=== PATIENT | female | born 1930 | race Caucasian/White ===

== ENCOUNTER 2017-04-12 16:34 | Inpatient (IN) ==
[2017-04-12] MEDS ORDERED: ONDANSETRON 4 MG/2 ML VIAL IV ONE (16:51)
[2017-04-12] MEDS ORDERED: LACTATED RINGERS 1,000 ML IV ONE (16:51)
--- NOTE | 2017-04-12 17:23 | Emergency Department Note ---
Weakness HPI - General Chief complaint: Weakness Stated complaint: malaise, diarrhea, weakness, decreased LOC Time Seen by Provider: 04/12/17 16:50 Source: patient, family Mode of arrival: EMS Limitations: altered mental status - History of Present Illness HPI Narrative: Patient has had flulike symptoms for last 2 and half days with nausea vomiting diarrhea weakness headache. Significant cough minimal abdominal pain. Diarrhea is been watery. MD Complaint: generalized weakness - Related Data Home Medications Medication Instructions Recorded Confirmed Apixaban [Eliquis] 2.5 mg PO BID 04/12/17 04/12/17 Bisoprolol Fumarate 5 mg PO HS 04/12/17 04/12/17 HYDROcodone/ACETAMINOPHEN 1 each PO BIDP PRN 04/12/17 04/12/17 [Hydrocodon-Acetaminophn 10-325] Losartan/Hydrochlorothiazide 1 each PO BID 04/12/17 04/12/17 [Losartan-Hctz 100-25 mg Tab] Omeprazole [PriLOSEC] 20 mg PO DAILY 04/12/17 04/12/17 Terazosin [Hytrin] 1 mg PO DAILY 04/12/17 04/12/17 Terazosin [Hytrin] 2 mg PO HS 04/12/17 04/12/17 Allergies Allergy/AdvReac Type Severity Reaction Status Date / Time POLLENS Allergy Intermediate Asthma Uncoded 08/24/14 21:33 Review of Systems All systems ED: reviewed and negative except as stated. Past Medical History - Past Medical History Medical history: Reports: atrial fibrillation, hypertension - Social History smoking status: Never smoker Physical Exam Limitations: altered mental status General appearance: in no apparent distress Head: atraumatic Eye: Present: normal appearance ENT: mucous membranes dry Neck: Present: normal inspection Chest: Present: normal inspection Respiratory: Present: normal lung sounds bilaterally Cardiovascular: Present: irregular rhythm, normal heart sounds Abdominal: Present: soft. Absent: distention, tenderness Psychiatric: Present: flat affect Skin: Present: warm, dry, intact Course Vital Signs Temperature 97.5 F 04/12/17 16:36 Pulse Rate 106 H 04/12/17 16:36 Respiratory Rate 22 04/12/17 16:36 Blood Pressure 215/112 04/12/17 16:36 Pulse Oximetry (%) 97 04/12/17 16:36 Temperature 97.5 F 04/12/17 16:36 Pulse Rate 123 H 04/12/17 20:03 Respiratory Rate 16 04/12/17 20:33 Blood Pressure 181/107 04/12/17 20:33 Pulse Oximetry (%) 97 04/12/17 20:03 Weakness - MDM Narrative Medical decision making narrative: This patient is C. difficile positive dehydrated hypokalemic and will be admitted to the hospital. - Lab Data Lab results reviewed: Yes I reviewed the patient's lab results. Result diagrams: 04/12/17 16:59 04/12/17 16:59 Lab Results 04/12/17 04/12/17 04/12/17 Range/Units 16:59 16:59 17:30 WBC 9.3 (4.5-11.0) K/mcL RBC 4.35 (4.00-5.20) M/mcL Hgb 14.0 (12.0-15.0) g/dL Hct 40.9 (36.0-48.0) % MCV 94.1 (80.0-100.0) fL MCH 32.3 (26.0-34.0) pg MCHC 34.3 (31.0-36.0) g/dL RDW 13.4 (11.5-14.5) % Plt Count 264 (140-440) K/mcL MPV 7.8 (7.4-10.4) fL Gran % 78.5 H (38.0-78.0) % Lymph % (Auto) 11.3 L (15.5-49.0) % [place] % (Auto) 8.1 (1.0-12.0) % Eos % (Auto) 1.9 (0.0-7.0) % Baso % (Auto) 0.2 (0.0-2.0) % Gran # 7.3 (1.8-8.0) K/mcL Lymph # (Auto) 1.0 L (1.5-4.8) K/mcL [place] # (Auto) 0.8 (0.1-0.9) K/mcL Eos # (Auto) 0.2 (0.0-0.7) K/mcL Baso # (Auto) 0 (0.0-0.3) K/mcL Sodium 129 L (133-145) mmol/L Potassium 2.9 L* (3.3-5.1) mmol/L Chloride 89 L (96-108) mmol/L Carbon Dioxide 22 (22-30) mmol/L Anion Gap 18.0 H (8-16) BUN 13 (8-23) mg/dl Creatinine 0.8 (0.6-1.1) mg/dl GFR Calculation 66 Glucose 121 H (70-105) mg/dL Calcium 8.7 (8.6-10.4) mg/dl Total Bilirubin 0.7 (0.0-1.0) mg/dL AST 27 (0-37) U/l ALT 13 (0-40) U/l Alkaline Phosphatase 142 H (39-117) U/L Total Protein 7.4 (5.9-8.4) gm/dL Albumin 4.3 (3.2-5.2) gm/dL Globulin 3.1 (2.2-3.7) gm/dL Albumin/Globulin Ratio 1.4 (1.0-2.3) Urine Color Yellow Urine Appearance Clear Urine pH 5.0 (5.0-9.0) Ur Specific [place] 1.018 (1.000-1.035) Urine Protein 30 A (NEG) mg/dL Urine Glucose (UA) Negative (NEG) mg/dL Urine Ketones Neg (NEG) mg/dL Urine Occult Blood 0.03 A (<0.03) mg/dL Urine Nitrate Neg (NEG) Urine Bilirubin Neg (NEG) mg/dL Urine Urobilinogen Neg (NEG) mg/dL Ur Leukocyte Esterase Neg (NEG) /uL Urine RBC 6 H (0-1) /hpf Urine WBC 3 (0-4) /hpf Ur Squamous Epith Cells < 1 (0-4) /hpf Urine Bacteria 0 (0) /hpf Hyaline Casts 2 (0-2) /lpf Urine Mucus Few (0) /hpf Ur Culture Indicated? No Disposition Pt seen by [facility]/PA only: No Clinical Impression: C. difficile enteritis, Hypokalemia, Dehydration Disposition: Xfer As Inpt ([facility]) Condition: Good Referrals: Stan Childs DO [Primary Care Provider] - Time of Disposition: 20:56
[2017-04-12 17:49] LABS: Basophils # (Auto) 0 K/mcL (0.0-0.3); Basophils % (Auto) 0.2 % (0.0-2.0); Eosinophils # (Auto) 0.2 K/mcL (0.0-0.7); Eosinophils % (Auto) 1.9 % (0.0-7.0); Granulocytes % (Auto) 78.5 % (38.0-78.0); Lymphocytes % (Auto) 11.3 % (15.5-49.0); Mean Cell Volume 94.1 fL (80.0-100.0); Mean Corpuscular HGB Conc 34.3 g/dL (31.0-36.0); Mean Corpuscular Hemoglobin 32.3 pg (26.0-34.0); Monocytes # (Auto) 0.8 K/mcL (0.1-0.9); Monocytes % (Auto) 8.1 % (1.0-12.0); Platelet Count 264 K/mcL (140-440); RBC 4.35 M/mcL (4.00-5.20); Red Cell Distribution Width 13.4 % (11.5-14.5)
[2017-04-12 17:57] LABS: Appearance,Urine CLEAR; Bacteria,Urine 0 /hpf (0); Bilirubin,Urine NEG (NEG); Color,Urine YELLOW; Glucose,Urine (UA) NEGATIVE (NEG); Leukocyte Esterase,Urine NEG /uL (NEG); Mucus,Urine FEW /hpf (0); Nitrate,Urine NEG (NEG); Protein,Urine 30 mg/dL (NEG); Specific Gravity,Urine 1.018 (1.000-1.035); Urine Blood 0.03 mg/dL (<0.03); Urine Hyaline Cast 2 /lpf (0-2); Urine RBC 6 /hpf (0-1); Urine Squamous Epithelial Cell < 1 /hpf (0-4); Urine WBC 3 /hpf (0-4); Urobilinogen,Urine NEG (NEG)
[2017-04-12 18:25] LABS: ALT/SGPT 13 U/l (0-40); Albumin 4.3 gm/dL (3.2-5.2); Albumin/Globulin Ratio 1.4 (1.0-2.3); Alkaline Phosphatase 142 U/L (39-117); Blood Urea Nitrogen 13 mg/dl (8-23)
[2017-04-12] MEDS ORDERED: POTASSIUM CHLORIDE 40 MEQ in DEXTROSE 5% IN WATER 500 ML IV ONE ×2 (19:24→21:42)
[2017-04-12] MEDS ORDERED: POTASSIUM CHLORIDE 20 MEQ/10 ML VIAL IV ONE ×2 (19:38→23:23)
[2017-04-12] MEDS ORDERED: metroNIDAZOLE 500 MG TABLET PO ONE (20:54)
[2017-04-12] MEDS ORDERED: TERAZOSIN 1 MG CAPSULE PO SCH (21:22)
[2017-04-12] MEDS ORDERED: METOPROLOL TARTRATE 5 MG/5 ML VIAL IV PRN ×3 (21:22→21:42)
[2017-04-12] MEDS ORDERED: BISOPROLOL FUMARATE 5 MG PO SCH (21:30)
--- NOTE | 2017-04-12 21:41 | Internal Med History&Physical ---
Medical - H&P: [facility] Patient information: Note initiated : 04/12/17 at 9:35 pm Service Date, if different from initiated Date: [] Patient: Niharika Crowley 87 y/o F admitted on for malaise, diarrhea, weakness , decreased LOC. Chief Complaint: [] History of present illness: Ms. Crowley is a 87 year old Female with h/o Afib on eliquis, HTN, presents to the ER with complaints of not feeling well x 2 days, viral syndrome as pe daugther, nausea, poor appetitie, and diarrhea, diarrhea is 6-7 times a day, for last 2 days , she has not eaten much during this tie, and had some nausea, symptoms have progressed over time. The patient today was noted to be very confused and was thinking she is [place] (used to live [place] ago), and was tryign to find her . The patient was therefore brought to the hospital The patient has no recent antibiotic exposure, no hospitalization, no sick contacts, no fever reported patient is very hard of hearing and quite confused, therefore most history is from her daughter. Patient in the ER was tachycardic, and hypertensive, has low K at 2.9, normal WBC, she had low sodium and very weak, she tested positive for cdiff. The patient also takes narcotic pain medications for chr back, joint pains, and has run out of her medications over the last 3 days. She will be admitted to the hospital for further management. ROS unobtainable: due to mental status Medical - H&P: PMH Medical history: afib htn osteroarthritis. chr pain Surgical history: multiple joint surgerys, back, knee, Family history: reviewed and not pertinent Pertinent family history: mother with heart issues. Social history: non smoker, no etoh, no recreational substance. Medical - H&P: Meds Home Medications Medication Instructions Recorded Confirmed Type Apixaban [Eliquis] 2.5 mg PO BID 04/12/17 04/12/17 History Bisoprolol Fumarate 5 mg PO HS 04/12/17 04/12/17 History HYDROcodone/ACETAMINOPHEN 1 each PO BIDP PRN 04/12/17 04/12/17 History [Hydrocodon-Acetaminophn 10-325] Losartan/Hydrochlorothiazide 1 each PO BID 04/12/17 04/12/17 History [Losartan-Hctz 100-25 mg Tab] Omeprazole [PriLOSEC] 20 mg PO DAILY 04/12/17 04/12/17 History Terazosin [Hytrin] 1 mg PO DAILY 04/12/17 04/12/17 History Terazosin [Hytrin] 2 mg PO HS 04/12/17 04/12/17 History Allergies Allergy/AdvReac Type Severity Reaction Status Date / Time POLLENS Allergy Intermediate Asthma Uncoded 08/24/14 21:33 Medical - H&P: Exam - Constitutional Vitals: Temp Pulse Resp BP Pulse Ox 97.5 F 123 H 17 159/114 97 04/12/17 16:36 04/12/17 20:03 04/12/17 21:21 04/12/17 21:02 04/12/17 20:03 Exam: GENERAL: The patient is a well-developed, well-nourished in no apparent distress. Is alert and oriented x1. VITAL SIGNS: Reviewed and as noted elsewhere. HEENT: Head is normocephalic and atraumatic. Extraocular muscles are intact. Pupils are equal, round, and reactive to light. Nares appeared normal. Mouth appears any without lesions. Mucous membranes are dry NECK: Normal to inspection, Supple, No lymphadenopathy or thyromegaly. LUNGS: Air entry equal on both sides, no wheezing, crackles or rhonchi noted. No accessory muscles of respiration(ant chest exam only) HEART: tachycardic rate and rhythm normal, S1 and S2 heard, no Gallop, S3 or Rub Noted, ABDOMEN: Soft, nontender, and nondistended. Positive bowel sounds. No hepatosplenomegaly was noted. EXTREMITIES: No cyanosis, clubbing, rash, lesions or edema. NEUROLOGIC: Cranial nerves II through XII are grossly intact. Motor and Sensory System Grossly Intact PSYCHIATRIC: confused behaviour, not agitated. SKIN: No ulceration or wounds noted, No jaundice, No rash noted. Medical - H&P: Reslt - Labs CBC & Chem 7: 04/12/17 16:59 04/12/17 16:59 Labs: Short CBC 04/12/17 Range/Units 16:59 WBC 9.3 (4.5-11.0) K/mcL Hgb 14.0 (12.0-15.0) g/dL Hct 40.9 (36.0-48.0) % Plt Count 264 (140-440) K/mcL BMP 04/12/17 16:59 Sodium 129 L Potassium 2.9 L* Chloride 89 L Carbon Dioxide 22 BUN 13 Creatinine 0.8 Glucose 121 H Calcium 8.7 Liver Function 04/12/17 Range/Units 16:59 Total Bilirubin 0.7 (0.0-1.0) mg/dL AST 27 (0-37) U/l ALT 13 (0-40) U/l Alkaline Phosphatase 142 H (39-117) U/L Albumin 4.3 (3.2-5.2) gm/dL Urine 04/12/17 Range/Units 17:30 Urine Color Yellow Urine Appearance Clear Urine pH 5.0 (5.0-9.0) Ur Specific [place] 1.018 (1.000-1.035) Urine Protein 30 A (NEG) mg/dL Urine Glucose (UA) Negative (NEG) mg/dL Medical - H&P: A/P - Narrative A/P Narrative: A/P Cdiff infection: community acquired Cdiff? no recent hospitalization, no recent antibiotic use as per marlena, start on pO vancomycin. Hypokalemia: acute, due to poor intake and diarrhea, replace IV total 80meq planned, Hyponatremia: due to dehydration, IV Fluids for now Afib with RVR: due to dehydration not sure if has taken her medications, resume home meds, IV fluids, prn metoprolol if pt does not respond. on eliquis continue same. HTN: BP is elevated, resume home meds, for now and monitor Altered mental status, : due to delirium, exam is non focal, hydrate patient for now, treat underlying infection and reassess her condition in AM, if despite above measures pt still shows no improvement, will get [employer] [employer] imaging. DVT on Eliquis Regular diet OT/PT/ST eval DNR code status. Plan of care reviewed with marlena, who was at bedside.
[2017-04-12] MEDS ORDERED: ONDANSETRON 4 MG/2 ML VIAL IV PRN (21:42)
[2017-04-12] MEDS ORDERED: oxyCODONE/APAP 5/325MG TABLET PO PRN (21:42)
[2017-04-12] MEDS ORDERED: ALBUTEROL SULFATE 2.5 MG/3 ML NEBULIZER NEB PRN (21:42)
[2017-04-12] MEDS ORDERED: NALOXONE HCL 0.4 MG/ML VIAL IV PRN (21:42)
[2017-04-12] MEDS ORDERED: HYDROmorphone 2 MG/ML SYRINGE IV ONE (21:42)
[2017-04-12] MEDS ORDERED: MAGNESIUM SULFATE 2 GM/50 ML BAG IV ONE (21:44)
[2017-04-12] MEDS: BISOPROLOL 5 MG TABLET PO SCH (23:23)
[2017-04-12] MEDS: APIXABAN 5 MG TABLET PO SCH (23:24)
[2017-04-12] MEDS: LACTATED RINGERS 1,000 ML IV SCH (23:25)
[2017-04-12] MEDS: VANCOMYCIN ORAL SOL 1,000 MG/10 ML BOTTLE PO SCH (23:27)
[2017-04-13 05:57] LABS: Basophils # (Auto) 0 K/mcL (0.0-0.3); Basophils % (Auto) 0.3 % (0.0-2.0); Eosinophils # (Auto) 0.1 K/mcL (0.0-0.7); Eosinophils % (Auto) 1.2 % (0.0-7.0); Granulocytes % (Auto) 88.9 % (38.0-78.0); Lymphocytes # (Auto) 0.5 K/mcL (1.5-4.8); Lymphocytes % (Auto) 4.1 % (15.5-49.0); Mean Corpuscular HGB Conc 34.1 g/dL (31.0-36.0); Mean Corpuscular Hemoglobin 32.1 pg (26.0-34.0); Monocytes # (Auto) 0.7 K/mcL (0.1-0.9); Monocytes % (Auto) 5.5 % (1.0-12.0); Platelet Count 239 K/mcL (140-440); RBC 3.95 M/mcL (4.00-5.20); Red Cell Distribution Width 13.3 % (11.5-14.5)
[2017-04-13 06:32] LABS: ALT/SGPT 12 U/l (0-40); Albumin 3.6 gm/dL (3.2-5.2); Albumin/Globulin Ratio 1.2 (1.0-2.3); Alkaline Phosphatase 124 U/L (39-117); Bilirubin,Direct < 0.2 mg/dL (0.0-0.3); Blood Urea Nitrogen 9 mg/dl (8-23); Gamma Glutamyl Transpeptidase 20 U/L (5-36); Magnesium 1.6 mg/dL (1.6-2.5); Uric Acid 3.6 mg/dL (2.5-8.0)
[2017-04-13] MEDS: LACTATED RINGERS 1,000 ML IV SCH (07:46)
[2017-04-13] MEDS: OMEPRAZOLE 20 MG CAPSULE PO SCH (07:52)
[2017-04-13] MEDS: ACETAMINOPHEN 325 MG TABLET PO PRN (07:52)
[2017-04-13] MEDS: APIXABAN 5 MG TABLET PO SCH ×2 (07:56→22:00)
[2017-04-13] MEDS: TERAZOSIN 1 MG CAPSULE PO SCH (07:56)
[2017-04-13] MEDS ORDERED: TERAZOSIN 1 MG CAPSULE PO SCH ×2 (09:00→21:00)
[2017-04-13] MEDS ORDERED: LOSARTAN 50 MG TABLET PO SCH (09:00)
[2017-04-13] MEDS ORDERED: NON FORMULARY MEDICATION 1 DOSE MISCELL (Apixaban [Eliquis] 2.5 MG) PO SCH (09:00)
[2017-04-13] MEDS ORDERED: OMEPRAZOLE 20 MG CAPSULE PO SCH (09:00)
[2017-04-13] MEDS ORDERED: HYDROCHLOROTHIAZIDE 25 MG TABLET PO SCH (09:00)
[2017-04-13] MEDS ORDERED: LOSARTAN/HCTZ 100/25 TABLET PO SCH ×2 (09:00)
[2017-04-13 09:49] LABS: Blood Urea Nitrogen 9 mg/dl (8-23)
[2017-04-13] MEDS: 0.9 % SODIUM CHLORIDE 1,000 ML IV SCH ×3 (09:49→21:59)
[2017-04-13] MEDS: VANCOMYCIN ORAL SOL 1,000 MG/10 ML BOTTLE PO SCH ×4 (10:01→22:06)
--- NOTE | 2017-04-13 11:03 | Cat Scan Report ---
CLINICAL INFORMATION: Decreased level consciousness with weakness and confusion COMPARISON: None. TECHNIQUE: 2.5 mm helical slices were obtained in the skull base to vertex. Following reconstruction, axial reformatted images were reviewed at bone and parenchymal windows. The exam was performed using radiation dose optimization techniques including, but not limited to, automated exposure control, adjustment of the mA and/or kV according to patient size and use of iterative reconstruction technique. FINDINGS: The ventricles, sulci, fissures, and cisterns are symmetrically enlarged compatible with mild age-related atrophy - no extra-axial fluid collections or masses are appreciated. Patchy chronic ischemic changes in the deep cerebral white matter are expected for age. There is no intracerebral hemorrhage, mass effect, edema or other acute finding Moderate sized air-fluid level in the right maxillary sinus with associated mucosal thickening is compatible with acute sinusitis. There is also subtotal opacification of both sphenoid and posterior left ethmoid air cells. IMPRESSION: 1. Mild atrophy and patchy chronic ischemic changes in the the cerebral white matter - expected for age. No acute intracerebral abnormality 2. Severe bilateral sphenoid sinusitis, left posterior ethmoid sinusitis and moderate acute right maxillary sinusitis [] Interpreted and Authenticated by: Hernando Person 04/13/17
[2017-04-13] MEDS: AMOXICILLIN/POTASSIUM CLAV 875 MG TABLET PO SCH ×2 (13:07→17:05)
--- NOTE | 2017-04-13 17:33 | Internal Med Progress Note ---
Medical - PN: Subj Patient information: Note initiated : 04/13/17 at 5:31 pm Service Date, if different from initiated Date: [] Patient: Niharika Crowley 87 y/o F admitted on 04/12/17 for Malaise, Diarrhea, Weakness, Decreased LOC/CDiff. Chief Complaint: [] Interval history: Ms. Crowley is a 87 year old Female with h/o Afib on eliquis, HTN, presents to the ER with complaints of not feeling well x 2 days, viral syndrome as pe daugther, nausea, poor appetitie, and diarrhea, diarrhea is 6-7 times a day, for last 2 days , she has not eaten much during this tie, and had some nausea, symptoms have progressed over time. The patient today was noted to be very confused and was thinking she is [place] (used to live [place] ago), and was tryign to find her . The patient was therefore brought to the hospital The patient has no recent antibiotic exposure, no hospitalization, no sick contacts, no fever reported patient is very hard of hearing and quite confused, therefore most history is from her daughter. Patient in the ER was tachycardic, and hypertensive, has low K at 2.9, normal WBC, she had low sodium and very weak, she tested positive for cdiff. The patient also takes narcotic pain medications for chr back, joint pains, and has run out of her medications over the last 3 days. She will be admitted to the hospital for further management. Apr 13 patient seen examined, no acute overnight issues, she remains confused, but is more coherent today CT head is neg for CVA wbc elevated today, reamins on po vanco patient sodium level dropped to 121, then 123, tsh is wnl, fluids changed to NS , monitor basic panel patient still delirious. Pertinent ROS: unable to get reliable ros as patient is confused but she denies all complaints. - Constitutional Vitals: Vital Signs Temp Pulse Resp BP Pulse Ox 98.5 F 123 H 12 148/122 97 04/13/17 16:00 04/12/17 20:03 04/13/17 16:00 04/13/17 16:00 04/13/17 16:00 Period Temp Pulse Resp BP Sys/Celeste Pulse Ox Last 24 Hr 97.1 F-98.7 F 84-137 12-23 128-192/93-158 94-98 Intake and Output 04/13/17 04/13/17 04/13/17 05:59 13:59 21:59 Intake Total 570 / 570 1455 / 1455 240 / 240 Output Total 875 / 875 Balance -305 / -305 1455 / 1455 240 / 240 Intake & Output: Intake & Output 04/13/17 04/13/17 04/13/17 05:59 13:59 21:59 Intake Total 570 / 570 1455 / 1455 240 / 240 Output Total 875 / 875 Balance -305 / -305 1455 / 1455 240 / 240 Intake: IV 570 / 570 1305 / 1305 Lactated Ringers 1,000 ml @ 150 1305 / 1305 mls/hr IV .[id number] HERMELINDO Rx#: [id number] Oral 150 / 150 240 / 240 Output: Void Amount 875 / 875 Other: Meal Breakfast Percent of Meal Consumed 25% # Voids 0 Exam: Constitutional; Afebrile, cooperative, alert, not in distress. Eyes- No icterus, , No periorbital swelling Ears- Ext ear normal, hearing hard to conversation. Neck- Midline trachea, supple Respiratory system: Air Entry equal on both sides, No crackles or wheezing, no rhonchi. CVS- Rate tachycardic rhythm irregular, S1,S2 heard, no gallop, no rub. Abdomen- Soft nontender abdomen, no organomegaly, no tenderness, no guarding or rigidity, PHARMACEUTICAL PHYSICIAN- AOOx1, moving all extremities, no gross focal deficit noted. Medical - PN: Obj Da - Labs CBC & Chem 7: 04/13/17 03:45 04/13/17 09:00 Labs: Abnormal Lab Results 04/13/17 04/13/17 04/13/17 09:00 03:45 03:45 WBC 12.6 H RBC 3.95 L Gran % 88.9 H Lymph % (Auto) 4.1 L Gran # 11.2 H Lymph # (Auto) 0.5 L Sodium 123 L 122 L Potassium Chloride 85 L 84 L Anion Gap Glucose 169 H 165 H Calcium 8.4 L Phosphorus 2.5 L Alkaline Phosphatase 124 H Lactate Dehydrogenase 270 H Urine Protein Urine Occult Blood Urine RBC 04/12/17 04/12/17 04/12/17 17:30 16:59 16:59 WBC RBC Gran % 78.5 H Lymph % (Auto) 11.3 L Gran # Lymph # (Auto) 1.0 L Sodium 129 L Potassium 2.9 L* Chloride 89 L Anion Gap 18.0 H Glucose 121 H Calcium Phosphorus Alkaline Phosphatase 142 H Lactate Dehydrogenase Urine Protein 30 A Urine Occult Blood 0.03 A Urine RBC 6 H Meds: Medications Acetaminophen (Tylenol) 650 mg PO Q6HP PRN PRN Reason: PAIN/FEVER > 101 Last Admin: 04/13/17 07:52 Dose: 650 mg Albuterol Sulfate (Ventolin) 2.5 mg NEB Q4HRT PRN PRN Reason: Shortness Of Breath Or Wheezing Amoxicillin/Clavulanate [facility] ([facility]) [facility] Last Admin: 04/13/17 17:05 Dose: 875 mg Bisoprolol Fumarate (Zebeta) 5 mg PO [facility] Last Admin: 04/12/17 23:23 Dose: 5 mg Hydrochlorothiazide (Oretic) 25 mg PO BID [facility] Last Admin: 04/13/17 07:52 Dose: 25 mg Sodium Chloride (Sodium Chloride 0.9%) 1,000 mls @ 100 mls/hr IV .Q10H [facility] Stop: 04/14/17 04:29 Last Admin: 04/13/17 17:00 Dose: Not Given Losartan Potassium (Cozaar) 100 mg PO BID [facility] Last Admin: 04/13/17 07:51 Dose: 100 mg Metoprolol Tartrate (Lopressor) 5 mg IV Q4HP PRN PRN Reason: Tachyarrhythmias Last Admin: 04/13/17 00:39 Dose: 5 mg Naloxone HCl (Narcan) 0.1 mg IV Q2MIN PRN PRN Reason: Opiate Reversal Omeprazole (Prilosec) 20 mg PO QAMAC [facility] Last Admin: 04/13/17 07:52 Dose: 20 mg Ondansetron HCl (Zofran) 4 mg IV Q4HP PRN PRN Reason: Nausea And Vomiting Oxycodone/Acetaminophen (Percocet 5-325 Mg) 1 tab PO Q4HP PRN PRN Reason: PAIN LEVEL 3-6 Terazosin HCl (Hytrin) 1 mg PO DAILY [facility] Last Admin: 04/13/17 07:56 Dose: 1 mg Terazosin HCl (Hytrin) 2 mg PO HS HERMELINDO Vancomycin HCl (Vancomycin Oral Juany) 250 mg PO QID [facility] Last Admin: 04/13/17 17:05 Dose: 2.5 ml Medical - PN: A/P - Time Spent With Patient Total time spent is greater than 50% in coordination of care (as documented) at patient's floor/unit and/or counseling patient: - Narrative A/P Narrative: A/P Cdiff infection: community acquired Cdiff? no recent hospitalization, no recent antibiotic use as per marlena, start on pO vancomycin. leucocytosis due to above, Hypokalemia: resolved. Afib with RVR: due to dehydration not sure if has taken her medications, resume home meds, IV fluids, prn metoprolol if pt does not respond. on eliquis continue same. HTN: BP is elevated, resume home meds, cut back losaratn to 100mg qd, d/c hctz in light of hyponatremia, and start on amlodipine 5mg qd. Hyponatremia: etiollogy dyue ot high dose hctz? d/c hctz? worsened after lr, change to NS, recheck, is acute so rapid correction is ok. CT head is neg. TSH neg. Altered mental status, : due to delirium, exam is non focal, hydrate patient for now, CT head is neg. DVT on Eliquis Regular diet OT/PT/ST eval DNR code status. Plan of care reviewed with marlena, who was at bedside this AM. Medical - PN: Qual - VTE Deep Vein Thrombosis/Pulmonary Embolism Present on Admission: No
[2017-04-13] MEDS ORDERED: amLODIPine 5 MG TABLET PO ONE (17:41)
[2017-04-13 19:00] LABS: Blood Urea Nitrogen 11 mg/dl (8-23)
[2017-04-13] MEDS: BISOPROLOL 5 MG TABLET PO SCH (22:00)
[2017-04-14 05:29] LABS: Basophils # (Auto) 0 K/mcL (0.0-0.3); Basophils % (Auto) 0.2 % (0.0-2.0); Eosinophils # (Auto) 0.1 K/mcL (0.0-0.7); Eosinophils % (Auto) 1.6 % (0.0-7.0); Granulocytes % (Auto) 83.4 % (38.0-78.0); Lymphocytes # (Auto) 0.7 K/mcL (1.5-4.8); Lymphocytes % (Auto) 7.5 % (15.5-49.0); Mean Cell Volume 93.7 fL (80.0-100.0); Mean Corpuscular HGB Conc 34.4 g/dL (31.0-36.0); Mean Corpuscular Hemoglobin 32.3 pg (26.0-34.0); Monocytes # (Auto) 0.7 K/mcL (0.1-0.9); Monocytes % (Auto) 7.3 % (1.0-12.0); Platelet Count 195 K/mcL (140-440); RBC 3.62 M/mcL (4.00-5.20); Red Cell Distribution Width 13.3 % (11.5-14.5)
[2017-04-14 05:53] LABS: ALT/SGPT 12 U/l (0-40); Albumin 3.7 gm/dL (3.2-5.2); Albumin/Globulin Ratio 1.5 (1.0-2.3); Alkaline Phosphatase 105 U/L (39-117); Bilirubin,Direct < 0.2 mg/dL (0.0-0.3); Blood Urea Nitrogen 11 mg/dl (8-23); Gamma Glutamyl Transpeptidase 21 U/L (5-36); Magnesium 1.4 mg/dL (1.6-2.5); Uric Acid 4.4 mg/dL (2.5-8.0)
[2017-04-14] MEDS ORDERED: MAGNESIUM SULFATE 2 GM/50 ML BAG IV ONE (07:54)
[2017-04-14] MEDS ORDERED: POTASSIUM CHLORIDE 20 MEQ PACKET PO ONE (08:09)
[2017-04-14] MEDS ORDERED: LOSARTAN 50 MG TABLET PO SCH (09:00)
[2017-04-14] MEDS ORDERED: amLODIPine 5 MG TABLET PO SCH (09:00)
[2017-04-14] MEDS ORDERED: FLU VACC QS2017-18 36MOS UP/PF 60 MCG/0.5 ML SYRINGE IM ONE (10:00)
[2017-04-14] MEDS: ACETAMINOPHEN 325 MG TABLET PO PRN (10:03)
[2017-04-14] MEDS: APIXABAN 5 MG TABLET PO SCH ×2 (10:04→21:33)
[2017-04-14] MEDS: TERAZOSIN 1 MG CAPSULE PO SCH (10:04)
[2017-04-14] MEDS: AMOXICILLIN/POTASSIUM CLAV 875 MG TABLET PO SCH ×2 (10:05→17:32)
[2017-04-14] MEDS: OMEPRAZOLE 20 MG CAPSULE PO SCH (10:05)
[2017-04-14] MEDS: VANCOMYCIN ORAL SOL 1,000 MG/10 ML BOTTLE PO SCH ×4 (10:05→21:35)
[2017-04-14] MEDS: 0.9 % SODIUM CHLORIDE 1,000 ML IV SCH ×4 (10:06→22:05)
--- NOTE | 2017-04-14 15:28 | Internal Med Progress Note ---
Medical - PN: Subj Patient information: Note initiated : 04/14/17 at 3:26 pm Service Date, if different from initiated Date: [] Patient: Niharika Crowley 87 y/o F admitted on 04/12/17 for Malaise, Diarrhea, Weakness, Decreased LOC/CDiff. Chief Complaint: [] Interval history: Ms. Crowley is a 87 year old Female with h/o Afib on eliquis, HTN, presents to the ER with complaints of not feeling well x 2 days, viral syndrome as pe daugther, nausea, poor appetitie, and diarrhea, diarrhea is 6-7 times a day, for last 2 days , she has not eaten much during this tie, and had some nausea, symptoms have progressed over time. The patient today was noted to be very confused and was thinking she is on [place] (used to live there 20 [place] ago), and was tryign to find her . The patient was therefore brought to the hospital The patient has no recent antibiotic exposure, no hospitalization, no sick contacts, no fever reported patient is very hard of hearing and quite confused, therefore most history is from her daughter. Patient in the ER was tachycardic, and hypertensive, has low K at 2.9, normal WBC, she had low sodium and very weak, she tested positive for cdiff. The patient also takes narcotic pain medications for chr back, joint pains, and has run out of her medications over the last 3 days. She will be admitted to the hospital for further management. Apr 13 patient seen examined, no acute overnight issues, she remains confused, but is more coherent today CT head is neg for CVA wbc elevated today, reamins on po vanco patient sodium level dropped to 121, then 123, tsh is wnl, fluids changed to NS , monitor basic panel patient still delirious. Apr 14 patient seen examined, daughter by bedside she notes she had few episdoes of diarrhea this AM mental status much better today, denies any complaints besides diarrhea. Pertinent ROS: Denies headache, dizziness Denies chest pain, palpitations Denies cough or shortness of breath Denies abdominal pain, nausea or vomiting. - Constitutional Vitals: Vital Signs Temp Pulse Resp BP Pulse Ox 98.0 F 99 H 19 141/108 95 04/14/17 13:42 04/14/17 07:29 04/14/17 09:30 04/14/17 12:15 04/14/17 12:15 Period Temp Pulse Resp BP Sys/Celeste Pulse Ox Last 24 Hr 97.5 F-98.9 F 99-114 12-19 119-163/79-122 93-98 Intake and Output 04/14/17 04/14/17 04/14/17 05:59 13:59 21:59 Intake Total 1410 / 1410 50 / 50 Output Total 125 / 125 175 / 175 Balance -125 / -125 1235 / 1235 50 / 50 Weight 161 lb Patient Weight 04/15/17 05:59 Weight 161 lb Intake & Output: Intake & Output 04/14/17 04/14/17 04/14/17 05:59 13:59 21:59 Intake Total 1410 / 1410 50 / 50 Output Total 125 / 125 175 / 175 Balance -125 / -125 1235 / 1235 50 / 50 Weight 161 lb Intake: IV 1050 / 1050 Oral 360 / 360 50 / 50 Output: Void Amount 75 / 75 125 / 125 Urine/Stool Mix 50 / 50 50 / 50 Other: Meal Breakfast Lunch Percent of Meal Consumed 50% 10 Feeding Ability Assist with Tray Set Up # Voids 1 1 # Bowel Movements 1 1 # of times incontinent of 1 Bowels Exam: Constitutional; Afebrile, cooperative, alert, not in distress. Eyes- No icterus, , No periorbital swelling Ears- Ext ear normal, hearing hard to conversation. Neck- Midline trachea, supple Respiratory system: Air Entry equal on both sides, No crackles or wheezing, no rhonchi. CVS- Rate rhythm regular, S1,S2 heard, no gallop, no rub. 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 Medical - PN: Obj Da - Labs CBC & Chem 7: 04/14/17 03:45 04/14/17 03:45 Labs: Abnormal Lab Results 04/14/17 04/14/17 04/13/17 03:45 03:45 17:46 WBC RBC 3.62 L Hgb 11.7 L Hct 34.0 L Gran % 83.4 H Lymph % (Auto) 7.5 L Gran # Lymph # (Auto) 0.7 L Sodium 126 L 123 L Potassium Chloride 89 L 86 L Carbon Dioxide 21 L 21 L Anion Gap Glucose 109 H 126 H Calcium 8.1 L 8.3 L Phosphorus Magnesium 1.4 L Alkaline Phosphatase Lactate Dehydrogenase 275 H Urine Protein Urine Occult Blood Urine RBC 04/13/17 04/13/17 04/13/17 09:00 03:45 03:45 WBC 12.6 H RBC 3.95 L Hgb Hct Gran % 88.9 H Lymph % (Auto) 4.1 L Gran # 11.2 H Lymph # (Auto) 0.5 L Sodium 123 L 122 L Potassium Chloride 85 L 84 L Carbon Dioxide Anion Gap Glucose 169 H 165 H Calcium 8.4 L Phosphorus 2.5 L Magnesium Alkaline Phosphatase 124 H Lactate Dehydrogenase 270 H Urine Protein Urine Occult Blood Urine RBC 04/12/17 04/12/17 04/12/17 17:30 16:59 16:59 WBC RBC Hgb Hct Gran % 78.5 H Lymph % (Auto) 11.3 L Gran # Lymph # (Auto) 1.0 L Sodium 129 L Potassium 2.9 L* Chloride 89 L Carbon Dioxide Anion Gap 18.0 H Glucose 121 H Calcium Phosphorus Magnesium Alkaline Phosphatase 142 H Lactate Dehydrogenase Urine Protein 30 A Urine Occult Blood 0.03 A Urine RBC 6 H Meds: Medications Acetaminophen (Tylenol) 650 mg PO Q6HP PRN PRN Reason: PAIN/FEVER > 101 Last Admin: 04/14/17 10:03 Dose: 650 mg Albuterol Sulfate (Ventolin) 2.5 mg NEB Q4HRT PRN PRN Reason: Shortness Of Breath Or Wheezing Amlodipine Besylate (Norvasc) 5 mg PO DAILY [facility] Last Admin: 04/14/17 10:05 Dose: 5 mg Amoxicillin/Clavulanate Potassium (Augmentin) 875 mg PO BIDCC [facility] Last Admin: 04/14/17 10:05 Dose: 875 mg Bisoprolol Fumarate (Zebeta) 5 mg PO HS [facility] Last Admin: 04/13/17 22:00 Dose: 5 mg Sodium Chloride (Sodium Chloride 0.9%) 1,000 mls @ 100 mls/hr IV .Q10H [facility] Stop: 04/15/17 14:14 Last Admin: 04/14/17 10:09 Dose: 100 mls/hr Losartan Potassium (Cozaar) 100 mg PO DAILY [facility] Last Admin: 04/14/17 10:04 Dose: 100 mg Metoprolol Tartrate (Lopressor) 5 mg IV Q4HP PRN PRN Reason: Tachyarrhythmias Last Admin: 04/13/17 00:39 Dose: 5 mg Naloxone HCl (Narcan) 0.1 mg IV Q2MIN PRN PRN Reason: Opiate Reversal Omeprazole (Prilosec) 20 mg PO QAMAC [facility] Last Admin: 04/14/17 10:05 Dose: 20 mg Ondansetron HCl (Zofran) 4 mg IV Q4HP PRN PRN Reason: Nausea And Vomiting Oxycodone/Acetaminophen (Percocet 5-325 Mg) 1 tab PO Q4HP PRN PRN Reason: PAIN LEVEL 3-6 Terazosin HCl (Hytrin) 1 mg PO DAILY [facility] Last Admin: 04/14/17 10:04 Dose: 1 mg Terazosin HCl (Hytrin) 2 mg PO HS [facility] Last Admin: 04/13/17 22:00 Dose: 2 mg Vancomycin HCl (Vancomycin Oral Juany) 250 mg PO QID [facility] Last Admin: 04/14/17 13:59 Dose: 2.5 ml Medical - PN: A/P - Time Spent With Patient Total time spent is greater than 50% in coordination of care (as documented) at patient's floor/unit and/or counseling patient: - Narrative A/P Narrative: A/P Cdiff infection: community acquired Cdiff? no recent hospitalization, no recent antibiotic use as per marlena, on po vancomycin. leucocytosis due to above, improving. Hypokalemia: resolved. Afib with RVR: IM proving, ation not sure if has taken her medications, resume home meds, IV fluids, prn metoprolol if pt does not respond. on eliquis continue same. HTN: BP is improving, continue home meds, losartan dose cut to 100mg qd, hctz st opped and amlodipine started. Hyponatremia: etiology due ot high dose hctz? d/c hctz? worsened after lr, change to NS, Na today is 126, slowly improving, tsh wnl. Altered mental status, : due to delirium, exam is non focal, hydrate patient for now, CT head is neg. clinically much better today. DVT on Eliquis Regular diet OT/PT/ST eval DNR code status. Medical - PN: Qual - VTE Deep Vein Thrombosis/Pulmonary Embolism Present on Admission: No
[2017-04-14] MEDS ORDERED: ACETAMINOPHEN 325 MG TABLET PO PRN (16:57)
[2017-04-14] MEDS ORDERED: ALBUTEROL SULFATE 2.5 MG/3 ML NEBULIZER NEB PRN (16:57)
[2017-04-14] MEDS ORDERED: NALOXONE HCL 0.4 MG/ML VIAL IV PRN (16:57)
[2017-04-14] MEDS ORDERED: METOPROLOL TARTRATE 5 MG/5 ML VIAL IV PRN (16:57)
[2017-04-14] MEDS ORDERED: ONDANSETRON 4 MG/2 ML VIAL IV PRN (16:57)
--- NOTE | 2017-04-14 17:33 | XRay Report ---
CLINICAL INFORMATION: Cough COMPARISON: 04/13/2012 FINDINGS: Moderate cardiomegaly is unchanged. Mediastinum and pulmonary vessels are unremarkable. Mild bibasilar airspace disease most likely represents atelectasis rather than developing infiltrate. No definite effusion IMPRESSION: Mild patchy bibasilar airspace disease - either atelectasis or developing infiltrate. Interpreted and Authenticated by: Hernando Person 04/14/17
[2017-04-14] MEDS ORDERED: TERAZOSIN 1 MG CAPSULE PO SCH (21:00)
[2017-04-14] MEDS ORDERED: BISOPROLOL 5 MG TABLET PO SCH (21:00)
[2017-04-14] MEDS: oxyCODONE/APAP 5/325MG TABLET PO PRN (21:50)
[2017-04-15] MEDS: oxyCODONE/APAP 5/325MG TABLET PO PRN ×2 (02:30→12:10)
[2017-04-15] MEDS: 0.9 % SODIUM CHLORIDE 1,000 ML IV SCH (03:17)
[2017-04-15 05:43] LABS: Basophils # (Auto) 0 K/mcL (0.0-0.3); Basophils % (Auto) 0.1 % (0.0-2.0); Eosinophils # (Auto) 0.2 K/mcL (0.0-0.7); Eosinophils % (Auto) 1.9 % (0.0-7.0); Granulocytes % (Auto) 83.1 % (38.0-78.0); Lymphocytes # (Auto) 0.7 K/mcL (1.5-4.8); Lymphocytes % (Auto) 7.5 % (15.5-49.0); Mean Corpuscular HGB Conc 34.8 g/dL (31.0-36.0); Mean Corpuscular Hemoglobin 32.7 pg (26.0-34.0); Monocytes # (Auto) 0.6 K/mcL (0.1-0.9); Monocytes % (Auto) 7.4 % (1.0-12.0); Platelet Count 189 K/mcL (140-440); RBC 3.39 M/mcL (4.00-5.20); Red Cell Distribution Width 13.9 % (11.5-14.5)
[2017-04-15 06:14] LABS: ALT/SGPT 12 U/l (0-40); Albumin 3.5 gm/dL (3.2-5.2); Albumin/Globulin Ratio 1.4 (1.0-2.3); Alkaline Phosphatase 100 U/L (39-117); Bilirubin,Direct < 0.2 mg/dL (0.0-0.3); Blood Urea Nitrogen 9 mg/dl (8-23); Gamma Glutamyl Transpeptidase 21 U/L (5-36); Magnesium 1.6 mg/dL (1.6-2.5); Uric Acid 4.1 mg/dL (2.5-8.0)
[2017-04-15] MEDS ORDERED: OMEPRAZOLE 20 MG CAPSULE PO SCH (07:30)
[2017-04-15] MEDS: APIXABAN 5 MG TABLET PO SCH (08:35)
[2017-04-15] MEDS: AMOXICILLIN/POTASSIUM CLAV 875 MG TABLET PO SCH (08:35)
[2017-04-15] MEDS: VANCOMYCIN ORAL SOL 1,000 MG/10 ML BOTTLE PO SCH (08:37)
[2017-04-15] MEDS ORDERED: TERAZOSIN 1 MG CAPSULE PO SCH (09:00)
[2017-04-15] MEDS ORDERED: amLODIPine 5 MG TABLET PO SCH (09:00)
[2017-04-15] MEDS ORDERED: LOSARTAN 50 MG TABLET PO SCH (09:00)
--- NOTE | 2017-04-15 10:15 | Discharge Summary ---
Medical - DS: Prov Patient information: Note initiated : 04/15/17 at 10:07 am Service Date, if different from initiated Date: [] Patient: Niharika Crowley 87 y/o F admitted on 04/12/17 for Malaise, Diarrhea, Weakness, Decreased LOC/CDiff. Chief Complaint: [] Date of admission: 04/12/17 21:39 Discharge date: 04/15/17 Primary care physician: Stan Childs Admitting clinician: Maxime Diaz Consults: 04/12/17 19:45 Consult to Physician [CONS] Stat Comment: Consulting Provider: Maxime Diaz Reason For Exam: Physician to Consult Discharging clinician: Maxime Diaz Medical - DS: Meds - Discharge Medications Prescriptions: amLODIPine [Norvasc] 5 mg PO DAILY #30 tab Amoxicillin/Potassium Clav [Augmentin] 875 mg PO BIDCC #14 tab HYDROcodone/ACETAMINOPHEN [Hydrocodon-Acetaminophn 10-325] 1 each PO BIDP PRN # 30 tab PRN Reason: Pain Losartan [Cozaar] 100 mg PO DAILY #30 tab Vancomycin Oral Juany 250 mg PO QID #56 Active and Home Medications: Home Medications Apixaban [Eliquis] 2.5 mg PO BID 04/12/17 [History Confirmed 04/12/17 Last Taken Unknown] Bisoprolol Fumarate 5 mg PO HS 04/12/17 [History Confirmed 04/12/17 Last Taken Unknown] HYDROcodone/ACETAMINOPHEN [Hydrocodon-Acetaminophn 10-325] 1 each PO BIDP PRN [History Confirmed 04/12/17 Last Taken Unknown] Losartan/Hydrochlorothiazide [Losartan-Hctz 100-25 mg Tab] 1 each PO BID [History Confirmed 04/12/17 Last Taken Unknown] Omeprazole [PriLOSEC] 20 mg PO DAILY 04/12/17 [History Confirmed 04/12/17 Last Taken Unknown] Terazosin [Hytrin] 1 mg PO DAILY 04/12/17 [History Confirmed 04/12/17 Last Taken Unknown] Terazosin [Hytrin] 2 mg PO HS 04/12/17 [History Confirmed 04/12/17 Last Taken Unknown] Medical - DS: Hosp Hospital course: Ms. Crowley is a 87 year old Female with h/o Afib on eliquis, HTN, presented to the ER with complaints of not feeling well x 2 days, viral syndrome as pe daughter, nausea, poor appetite, and diarrhea, diarrhea is 6-7 times a day, Patient had poor appetitie she has not eaten much during this time, and had some nausea, symptoms have progressed over time. The patient was noted to be very confused and was therefore brought to the hospital. The patient has no recent antibiotic exposure, no hospitalization, no sick contacts, no fever reported. Patient in the ER was tachycardic, and hypertensive, has low K at 2.9 , normal WBC, she had low sodium and very weak, she tested positive for cdiff. The patient also takes narcotic pain medications for chr back, joint pains, and has run out of her medications over the last 3 days. She was be admitted to the hospital for further management. CT head done for confusion was neg for cva, but positive for Sinusitis, Chest X ray showed atelectasis vs pna. C diff diarrhea: Responded well to po vancomycin, she had few episodes of diarrhea, which resolved by the time of discharge, she will continue 14 more days of vancomycin. Altered mental status: due to sinusitis, cidff, hyponatremia, patient at the time of discharge is back to baseline. Hyponatremia: due to poor intake as well as use of hctz, Pt was taking losartan - hctz 100-25 bid? will stop this, and just use losartan 100mg qd and add amlodipine 5mg to her regime, sodium at the time of discahrge was 130, she was tolerating po diet well, tsh neg Acute sinusitis: Responded well to po augmentin, total of 10 days of antibiotics planned. HTN: Patient was on bisoprolol 5mg, losartan hctz 100-25 bid, and terazosin. Given that she had hyponatremia, I have stopped hctz and replaced with amlodipine, Her bp was stble at discharge. She will continue losartan 100mg once daily. continue bisoprolol and terazosin. afib, initially had rvr, but later improved after infection and fluid resusitation was done, on beta noemí with good rate control and eliquis 2.5mg bid at discharge. The rest of the stay in the hospital was uneventful, the patient after the procedure was weak and was not safe to be discharged back home. She will be discharged to SNF for further management. Discharge diagnosis: Acute Sinusitis, C diff diarrhea, Hyponatremia. - Time Spent with Patient Total time spent providing and/or coordinating discharge services: Greater than 30 minutes Medical - DS: Exam - Constitutional Vitals: Vital Signs Temp Pulse Resp BP Pulse Ox 04/15/17 07:08 97.7 F 20 125/75 04/15/17 03:40 97.2 F 78 22 128/80 96 04/14/17 23:36 96.3 F L 88 24 H 130/78 95 04/14/17 19:51 97.3 F 85 24 H 124/78 96 04/14/17 16:00 97.5 F 97 H 18 144/95 98 04/14/17 13:42 98.0 F 04/14/17 12:15 141/108 95 Intake and Output 04/14/17 04/15/17 04/15/17 21:59 05:59 13:59 Intake Total 50 / 50 100 / 100 Output Total 200 / 200 100 / 100 Balance 49 / 49 -100 / -100 -100 / -100 Intake: Oral 50 / 50 100 / 100 Output: Void Amount 200 / 200 100 / 100 # of times incontinent of urine Other: Meal Dinner Percent of Meal Consumed 10 Feeding Ability Assist with Tray Set Up # Voids 1 1 # of times incontinent of 1 Bowels Weight 154 lb 8 oz Additional comments: Constitutional; Afebrile, cooperative, alert, not in distress. Eyes- No icterus, , No periorbital swelling Ears- Ext ear normal,. Neck- Midline trachea, supple Respiratory system: Air Entry equal on both sides, No crackles or wheezing, no rhonchi. CVS- Rate rhythm regular, S1,S2 heard, no gallop, no rub. 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 Medical - DS: Data Labs on day of discharge: Labs from last 24 hours 04/15/17 04/15/17 04/15/17 04:11 04:11 04:11 WBC 8.7 RBC 3.39 L Hgb 11.1 L Hct 31.9 L MCV 94.0 MCH 32.7 MCHC 34.8 RDW 13.9 Plt Count 189 MPV 7.7 Gran % 83.1 H Lymph % (Auto) 7.5 L [place] % (Auto) 7.4 Eos % (Auto) 1.9 Baso % (Auto) 0.1 Gran # 7.2 Lymph # (Auto) 0.7 L [place] # (Auto) 0.6 Eos # (Auto) 0.2 Baso # (Auto) 0 Sodium 130 L Potassium 3.4 Chloride 93 L Carbon Dioxide 18 L Anion Gap 19.0 H BUN 9 Creatinine 0.6 GFR Calculation 82 Glucose 101 Uric Acid 4.1 Calcium 7.8 L Phosphorus 2.8 Magnesium 1.6 Total Bilirubin 0.6 Direct Bilirubin < 0.2 GGT 21 AST 24 ALT 12 Alkaline Phosphatase 100 Lactate Dehydrogenase 307 H Total Protein 6.0 Albumin 3.5 Globulin 2.5 Albumin/Globulin Ratio 1.4 Triglycerides 89 Procalcitonin < 0.05 Medical - DS: A/P - Patient/Caregiver Discharge Instructions Activity: increase activity as tolerated Diet: Regular Diet Additional Instructions: Patient admitted for Cdiff diarrhea, Acute sinusitis, Hyponatremia, Afib with RVR Take medications as prescribed Go to the ER if worsening symptoms, fever, chills, shortness of breath, confusion or any other concerns Follow up with PCP in 1 week - Follow up Plan Follow up with: Stan Childs DO [Primary Care Provider] - (Please call/Schedule hospital follow up.) Disposition: Xfer SNF Prognosis: Good Rehab Potential: Good I certify that the patient requires SNF services: Yes Overall status at discharge: patient is progressing back to baseline Medical - DS: Qual - VTE Deep Vein Thrombosis/Pulmonary Embolism Present on Admission: No
[2017-04-15] MEDS ORDERED: FLU VACC QS2017-18 36MOS UP/PF 60 MCG/0.5 ML SYRINGE IM ONE (12:00)
== END 2017-04-15 12:10 | DRG 153 ==
LOC: ED 16:34 → ICU 21:39 → MEDSUR 04-14 19:02
PROVIDERS: ADMIT Internal Medicine; ATTEND Internal Medicine

== ENCOUNTER 2019-02-19 17:00 | Inpatient (IN) ==
[2019-02-19 17:31] LABS: POC Blood Urea Nitrogen 14 mg/dl (8-23); POC CO2 26 mmol/L (22-30); POC Chloride 80 mmol/L (96-108); POC Creatinine 0.8 mg/dl (0.6-1.1); POC Glucose, Random 235 mg/dL (70-105); POC Potassium 2.7 mmol/L (3.3-5.1); POC Sodium 122 mmol/L (133-145)
[2019-02-19] MEDS ORDERED: NALOXONE HCL 0.4 MG/ML VIAL IV ONE (17:36)
--- NOTE | 2019-02-19 17:41 | Cat Scan Report ---
CLINICAL INFORMATION: Decreased level consciousness COMPARISON: None. TECHNIQUE: 2.5 mm helical slices were obtained in the skull base to vertex. Following reconstruction, axial reformatted images were reviewed at bone and parenchymal windows. The exam was performed using radiation dose optimization techniques including, but not limited to, automated exposure control, adjustment of the mA and/or kV according to patient size and use of iterative reconstruction technique. FINDINGS: There is a large subdural hematoma extending over the entire left cerebral convexity involving the frontal, parietal and temporal lobes. It is predominantly high attenuation however there are low-attenuation over the frontal lobe suggesting this is an acute upon chronic hemorrhage. Maximal thickness is 2 cm. It results in marked effacement of the underlying sulci with corticomedullary buckling, complete compression of the left lateral ventricle, subfalcine/uncal herniation and left to right shift. Contralateral hydrocephalus of the right lateral ventricle related to right foramen of Stephens and third ventricle compression. [place] high attenuation in the the central caesar is suggestive of Duret hemorrhages as result of mass effect on the pontine perforating arteries. A small amount of subarachnoid hemorrhage is seen in both sylvian, interpeduncular and ambient cisterns. The bone windows show no osseous abnormality IMPRESSION: 1. 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 There is marked associated mass effect with effacement of the overlying gyri complete compression of the left lateral ventricle, [id number] shift, and subfalcine /uncal herniation. There appears to be small Duret hemorrhages in the central caesar related to possible tearing of the on the perforating arteries. Obstructive hydrocephalus of the contralateral right lateral ventricle related to foramen of Stephens compression 2. Mild subarachnoid hemorrhage in both sylvian, interpedicular and ambient cisterns. Consider CT cerebral angiogram to evaluate the cerebral vasculature. Interpreted and Authenticated by: Hernando Person 02/19/19
[2019-02-19 17:50] LABS: POC Pro Time 12.6 sec (11.9-14.5)
[2019-02-19 18:20] LABS: Basophils # (Auto) 0 K/mcL (0.0-0.3); Basophils % (Auto) 0 % (0.0-2.0); Eosinophils # (Auto) 0 K/mcL (0.0-0.7); Eosinophils % (Auto) 0 % (0.0-7.0); Granulocytes % (Auto) 93.6 % (38.0-78.0); Hematocrit 43.1 % (36.0-48.0); Hemoglobin 14.5 g/dL (12.0-15.0); Lymphocytes # (Auto) 0.4 K/mcL (1.5-4.8); Lymphocytes % (Auto) 2.3 % (15.5-49.0); Mean Cell Volume 96.2 fL (80.0-100.0); Mean Corpuscular HGB Conc 33.6 g/dL (31.0-36.0); Mean Platelet Volume 7.7 fL (7.4-10.4); Monocytes # (Auto) 0.7 K/mcL (0.1-0.9); Monocytes % (Auto) 4.1 % (1.0-12.0); Platelet Count 266 K/mcL (140-440); RBC 4.48 M/mcL (4.00-5.20); Red Cell Distribution Width 12.6 % (11.5-14.5); WBC 17.8 K/mcL (4.5-11.0)
[2019-02-19 18:25] LABS: ALT/SGPT 15 U/l (0-40); AST/SGOT 39 U/l (0-37); Albumin 4.5 gm/dL (3.2-5.2); Albumin/Globulin Ratio 1.3 (1.0-2.3); Alkaline Phosphatase 111 U/L (39-117); Bilirubin,Total 0.9 mg/dL (0.0-1.0); Blood Urea Nitrogen 13 mg/dl (8-23); Carbon Dioxide 23 mmol/L (22-30); Globulin 3.4 gm/dL (2.2-3.7); Glomerular Filtration Rate 65; Glucose 237 mg/dL (70-105)
[2019-02-19 18:29] LABS: Chloride 80 mmol/L (96-108)
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
[2019-02-19] MEDS ORDERED: ONDANSETRON 4 MG ODT TABLET SL PRN (21:22)
[2019-02-19] MEDS ORDERED: LACTOPEROXI/GLUC OXID/POT THIO 1 EACH GEL..EA. TOPICAL PRN (21:22)
[2019-02-19] MEDS: 0.9 % SODIUM CHLORIDE 10 ML SYRINGE IV SCH (22:00)
[2019-02-20] MEDS: 0.9 % SODIUM CHLORIDE 10 ML SYRINGE IV SCH ×3 (05:54→14:24)
[2019-02-20] MEDS: LORazepam 2 MG/ML VIAL IV PRN ×4 (06:50→14:24)
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
== END 2019-02-20 16:30 | disposition expired | DRG 951 ==
LOC: ED 17:00 → MEDSUR 21:10
PROVIDERS: ADMIT Internal Medicine; ATTEND Internal Medicine